=== PATIENT | female | born 1970 | race American Indian/Alaskan Native ===

== ENCOUNTER 2021-02-26 18:24 | Emergency (ER) | payer SELFPAY ==
--- NOTE | 2021-02-26 18:55 | Event Note ---
ED Screening Note ED Screening Note: I briefly spoke with patient. SHe is exhibiting poor insight and disorganized thought pattern. WIll need MH evaluation. This initial assessment/diagnostic orders/clinical plan/treatment(s) is/are subject to change based on patients health status, clinical progression and re- assessment by fellow clinical providers in the ED. Further treatment and workup at subsequent clinical providers discretion. Patient/guardian urged not to elope from the ED as their condition may be serious if not clinically assessed and managed. Initial orders include:
[2021-02-26 19:30] LABS: Basophils # (Auto) 0.1 K/mm3 (0.0-0.1); Basophils % (Auto) 1.3 % (0.0-1.8); Eosinophils % (Auto) 0.7 % (0.0-4.3); Hematocrit 31.6 % (30.3-42.9); Hemoglobin 9.8 gm/dl (10.1-14.3); Lymphocytes # (Auto) 1.3 K/mm3 (1.2-5.4); Lymphocytes % (Auto) 26.9 % (13.4-35.0); Mean Corpuscular HGB Conc 31 % (30-34); Mean Corpuscular Volume 79 fl (79-97); Monocytes # (Auto) 0.5 K/mm3 (0.0-0.8); Monocytes % (Auto) 11.2 % (0.0-7.3); Platelet Count 157 K/mm3 (140-440); Red Blood Count 4.02 M/mm3 (3.65-5.03)
[2021-02-26 19:39] LABS: Red Cell Distribution Width 22.1 % (13.2-15.2)
[2021-02-26 19:46] LABS: BUN/Creatinine Ratio 12; Blood Urea Nitrogen 6 mg/dL (7-17); Hemolysis Index 17
[2021-02-26] MEDS ORDERED: diphenhydrAMINE 50 MG/ML VIAL IM NR (19:52)
[2021-02-26] MEDS ORDERED: HALOPERIDOL LACTATE 5 MG/1 ML INJ IM PRN (19:52)
[2021-02-26] MEDS ORDERED: LORazepam 2 MG/ML VIAL IM PRN (19:52)
--- NOTE | 2021-02-26 19:54 | Emergency Department Report ---
ED General Adult HPI - General Chief complaint: Psych Stated complaint: Patient is psychotic and will not speak to me PUI?: No Time Seen by Provider: 02/26/21 19:50 Source: patient, RN notes reviewed Mode of arrival: Ambulatory Limitations: Other (Acute psychosis) - History of Present Illness Initial comments: The patient was evaluated in the emergency department for symptoms described in the history of present illness. He/she was evaluated in the context of the global COVID-19 pandemic, which necessitated consideration that the patient might be at risk for infection with the virus that causes COVID-19. Institutional protocols and algorithms that pertain to the evaluation of patients at risk for COVID-19 are in a state of rapid change based on information released by regulatory bodies including the CDC and federal and state organizations. These policies and algorithms were followed during the patient's care in the emergency department. Please note that these policies, procedures and recommendations changed on a rapid basis. This is a 58-year-old female. She is not known to myself previously. The details of her pertinent past medical history are not known to myself. It is not known to myself how she came to this emergency room. On my evaluation, the patient is psychotic. She is agitated, aggressive, and spitting on staff. The patient does not respond to verbal de-escalation techniques or show of force. She is placed on a 1013, and medicated with haloperidol, Ativan, and Benadryl. The patient is not accompanied by friends or family at this time for collateral information or additional history. The patient is acutely agitated and psychotic, not able to describe the qualitative nature of symptoms, exacerbating factors, relieving factors or aggravating factors. -: unknown - Related Data Allergies Allergy/AdvReac Type Severity Reaction Status Date / Time No Known Allergies Allergy Verified 02/26/21 22:25 ED Review of Systems ROS: Stated complaint: EVALUATION Other details as noted in HPI Comment: Unobtainable due to pts medical conditions ED Physical Exam - General Limitations: Other (Agitation and psychosis) General appearance: other (Psychotic) - Head Head exam: Present: atraumatic, normocephalic - Eye Eye exam: Present: normal appearance, EOMI - ENT ENT exam: Present: normal exam, normal orophraynx, mucous membranes moist, norm al external ear exam - Neck Neck exam: Present: normal inspection, full ROM. Absent: tenderness, meningismus - Respiratory Respiratory exam: Present: normal lung sounds bilaterally. Absent: respiratory distress, wheezes, rales, rhonchi, stridor, decreased breath sounds - Cardiovascular Cardiovascular Exam: Present: regular rate, normal rhythm, normal heart sounds. Absent: bradycardia, tachycardia, irregular rhythm, systolic murmur, diastolic murmur, rubs, gallop - GI/Abdominal GI/Abdominal exam: Present: soft. Absent: distended, tenderness, guarding, rebound, rigid, pulsatile mass - Extremities Exam Extremities exam: Present: normal inspection, full ROM, other (2+ pulses noted in the bilateral upper and lower extremities. There is no palpable cord. negative Homans sign. Muscular compartments are soft. The pelvis is stable.). Absent: pedal edema, calf tenderness - Back Exam Back exam: Present: normal inspection. Absent: tenderness, CVA tenderness (R), CVA tenderness (L), paraspinal tenderness, vertebral tenderness - Neurological Exam Neurological exam: Present: other (The patient is awake. EOMI. Tongue midline. 5 out of 5 strength in 4 extremities.) - Psychiatric Psychiatric exam: Present: agitated, anxious, other (Yelling and cursing at staff) - Skin Skin exam: Present: warm, dry, intact, normal color. Absent: rash ED Course Vital Signs 02/26/21 18:51 Temperature 98.8 F Pulse Rate 74 Respiratory 16 Rate Blood Pressure 145/108 [Right] O2 Sat by Pulse 97 Oximetry - Reevaluation(s) Reevaluation #1: 02/27/21 00:40 Differential diagnosis, including but not limited to: Psychosis, medical clearance for psychiatric placement, electrolyte derangement, thyroid derangement Assessment and plan: 51-year-old female who is grossly psychotic, requires 1013. Her external physical examination is unremarkable. Her diagnostic laboratory studies, including TSH and electrolytes are unremarkable. Urinalysis and urine drug screen are pending. CT scan of the brain negative for acute findings, serum toxicology study unremarkable. Covid swab ordered in anticipation of psychiatric placement. The emergency department will follow along as the patient provides her urine sample and urine drug screen. However, at this point time, this patient does not appear to have an immediate medical contraindication to psychiatric admission, evaluation, consultation and placement. Psychiatric consultation is pending at this time. ED Medical Decision Making - Lab Data Result diagrams: 02/26/21 19:07 02/26/21 19:07 Vital Signs 02/26/21 18:51 Temperature 98.8 F Pulse Rate 74 Respiratory 16 Rate Blood Pressure 145/108 [Right] O2 Sat by Pulse 97 Oximetry Lab Results 02/26/21 02/26/21 02/26/21 Range/Units 19:07 19:07 19:07 WBC 4.7 (4.5-11.0) K/mm3 RBC 4.02 (3.65-5.03) M/mm3 Hgb 9.8 L (10.1-14.3) gm/dl Hct 31.6 (30.3-42.9) % MCV 79 (79-97) fl MCH 25 L (28-32) pg MCHC 31 (30-34) % RDW 22.1 H (13.2-15.2) % Plt Count 157 (140-440) K/mm3 Lymph % (Auto) 26.9 (13.4-35.0) % [place] % (Auto) 11.2 H (0.0-7.3) % Eos % (Auto) 0.7 (0.0-4.3) % Baso % (Auto) 1.3 (0.0-1.8) % Lymph # (Auto) 1.3 (1.2-5.4) K/mm3 [place] # (Auto) 0.5 (0.0-0.8) K/mm3 Eos # (Auto) 0.0 (0.0-0.4) K/mm3 Baso # (Auto) 0.1 (0.0-0.1) K/mm3 Seg Neutrophils % 59.9 (40.0-70.0) % Seg Neutrophils # 2.8 (1.8-7.7) K/mm3 Sodium 137 (137-145) mmol/L Potassium 3.7 (3.6-5.0) mmol/L Chloride 103.3 (98-107) mmol/L Carbon Dioxide 24 (22-30) mmol/L Anion Gap 13 mmol/L BUN 6 L (7-17) mg/dL Creatinine 0.5 L (0.6-1.2) mg/dL Estimated GFR > 60 ml/min BUN/Creatinine Ratio 12 % Glucose 86 (65-100) mg/dL Calcium 9.0 (8.4-10.2) mg/dL Magnesium (1.7-2.3) mg/dL Total Creatine Kinase (30-135) units/L TSH (0.270-4.200) mlU/mL HCG, Qual (Negative) HCG, Quant (0-4) mIU/mL Salicylates < 0.3 L (2.8-20.0) mg/dL Acetaminophen (10.0-30.0) ug/mL Valproic Acid (50-100) ug/mL [place] (0.0-1.2) mmol/L Plasma/Serum Alcohol (0-0.07) % 02/26/21 02/26/21 02/26/21 Range/Units 19:07 19:07 19:07 WBC (4.5-11.0) K/mm3 RBC (3.65-5.03) M/mm3 Hgb (10.1-14.3) gm/dl Hct (30.3-42.9) % MCV (79-97) fl MCH (28-32) pg MCHC (30-34) % RDW (13.2-15.2) % Plt Count (140-440) K/mm3 Lymph % (Auto) (13.4-35.0) % [place] % (Auto) (0.0-7.3) % Eos % (Auto) (0.0-4.3) % Baso % (Auto) (0.0-1.8) % Lymph # (Auto) (1.2-5.4) K/mm3 [place] # (Auto) (0.0-0.8) K/mm3 Eos # (Auto) (0.0-0.4) K/mm3 Baso # (Auto) (0.0-0.1) K/mm3 Seg Neutrophils % (40.0-70.0) % Seg Neutrophils # (1.8-7.7) K/mm3 Sodium (137-145) mmol/L Potassium (3.6-5.0) mmol/L Chloride (98-107) mmol/L Carbon Dioxide (22-30) mmol/L Anion Gap mmol/L BUN (7-17) mg/dL Creatinine (0.6-1.2) mg/dL Estimated GFR ml/min BUN/Creatinine Ratio % Glucose (65-100) mg/dL Calcium (8.4-10.2) mg/dL Magnesium (1.7-2.3) mg/dL Total Creatine Kinase (30-135) units/L TSH (0.270-4.200) mlU/mL HCG, Qual Negative (Negative) HCG, Quant (0-4) mIU/mL Salicylates (2.8-20.0) mg/dL Acetaminophen 5.0 L (10.0-30.0) ug/mL Valproic Acid (50-100) ug/mL [place] (0.0-1.2) mmol/L Plasma/Serum Alcohol < 0.01 (0-0.07) % 02/26/21 02/26/21 02/26/21 Range/Units 19:07 19:07 19:07 WBC (4.5-11.0) K/mm3 RBC (3.65-5.03) M/mm3 Hgb (10.1-14.3) gm/dl Hct (30.3-42.9) % MCV (79-97) fl MCH (28-32) pg MCHC (30-34) % RDW (13.2-15.2) % Plt Count (140-440) K/mm3 Lymph % (Auto) (13.4-35.0) % [place] % (Auto) (0.0-7.3) % Eos % (Auto) (0.0-4.3) % Baso % (Auto) (0.0-1.8) % Lymph # (Auto) (1.2-5.4) K/mm3 [place] # (Auto) (0.0-0.8) K/mm3 Eos # (Auto) (0.0-0.4) K/mm3 Baso # (Auto) (0.0-0.1) K/mm3 Seg Neutrophils % (40.0-70.0) % Seg Neutrophils # (1.8-7.7) K/mm3 Sodium (137-145) mmol/L Potassium (3.6-5.0) mmol/L Chloride (98-107) mmol/L Carbon Dioxide (22-30) mmol/L Anion Gap mmol/L BUN (7-17) mg/dL Creatinine (0.6-1.2) mg/dL Estimated GFR ml/min BUN/Creatinine Ratio % Glucose (65-100) mg/dL Calcium (8.4-10.2) mg/dL Magnesium 2.20 (1.7-2.3) mg/dL Total Creatine Kinase 110 (30-135) units/L TSH 2.050 (0.270-4.200) mlU/mL HCG, Qual (Negative) HCG, Quant 0.615 (0-4) mIU/mL Salicylates (2.8-20.0) mg/dL Acetaminophen (10.0-30.0) ug/mL Valproic Acid (50-100) ug/mL [place] (0.0-1.2) mmol/L Plasma/Serum Alcohol (0-0.07) % 02/26/21 Range/Units 19:07 WBC (4.5-11.0) K/mm3 RBC (3.65-5.03) M/mm3 Hgb (10.1-14.3) gm/dl Hct (30.3-42.9) % MCV (79-97) fl MCH (28-32) pg MCHC (30-34) % RDW (13.2-15.2) % Plt Count (140-440) K/mm3 Lymph % (Auto) (13.4-35.0) % [place] % (Auto) (0.0-7.3) % Eos % (Auto) (0.0-4.3) % Baso % (Auto) (0.0-1.8) % Lymph # (Auto) (1.2-5.4) K/mm3 [place] # (Auto) (0.0-0.8) K/mm3 Eos # (Auto) (0.0-0.4) K/mm3 Baso # (Auto) (0.0-0.1) K/mm3 Seg Neutrophils % (40.0-70.0) % Seg Neutrophils # (1.8-7.7) K/mm3 Sodium (137-145) mmol/L Potassium (3.6-5.0) mmol/L Chloride (98-107) mmol/L Carbon Dioxide (22-30) mmol/L Anion Gap mmol/L BUN (7-17) mg/dL Creatinine (0.6-1.2) mg/dL Estimated GFR ml/min BUN/Creatinine Ratio % Glucose (65-100) mg/dL Calcium (8.4-10.2) mg/dL Magnesium (1.7-2.3) mg/dL Total Creatine Kinase (30-135) units/L TSH (0.270-4.200) mlU/mL HCG, Qual (Negative) HCG, Quant (0-4) mIU/mL Salicylates (2.8-20.0) mg/dL Acetaminophen (10.0-30.0) ug/mL Valproic Acid < 2.8 L (50-100) ug/mL [place] 0.1 (0.0-1.2) mmol/L Plasma/Serum Alcohol (0-0.07) % - Radiology Data Radiology results: pending, report reviewed, image reviewed CT HEAD WITHOUT CONTRAST INDICATION / CLINICAL INFORMATION: psychosis med clearance psych. TECHNIQUE: All CT scans at this location are performed using CT dose reduction for ALARA by means of automated exposure control. COMPARISON: None available. FINDINGS: No acute intracranial hemorrhage. Ventricles are normal in size without midline shift or mass effect. No extra-axial fluid collection is seen. Visualized sinuses are clear. ADDITIONAL FINDINGS: None. IMPRESSION: 1. No acute intracranial abnormality. Signer Name: Wil Rodriguez MD Signed: 02/26/2021 10:58 PM Workstation Name: [email or web address] Critical care attestation.: If time is entered above; I have spent that time in minutes in the direct care of this critically ill patient, excluding procedure time. ED Disposition Clinical Impression: Psychosis, Medical clearance for psychiatric admission Disposition: [address] [place] [address] Is pt being admited?: No Does the pt Need Aspirin: No Condition: Good
--- NOTE | 2021-02-27 00:02 | Cat Scan Report ---
CT HEAD WITHOUT CONTRAST INDICATION / CLINICAL INFORMATION: psychosis med clearance psych. TECHNIQUE: All CT scans at this location are performed using CT dose reduction for ALARA by means of automated e xposure control. COMPARISON: None available. FINDINGS: No acute intracranial hemorrhage. Ventricles are normal in size without midline shift or mass effect. No extra-axial fluid collection is seen. Visualized sinuses are clear. ADDITIONAL FINDINGS: None. IMPRESSION: 1. No acute intracranial abnormality. Signer Name: Wil Rodriguez MD Signed: 02/26/2021 11:58 PM Workstation Name: [id number]
--- NOTE | 2021-02-27 10:53 | Consultation ---
History of Present Illness - Reason for Consult Consult date: 02/27/21 Reason for consult: agitation - History of Present Psychiatric Illness Per ER Note: This is a 58-year-old female. She is not known to myself previously. The details of her pertinent past medical history are not known to myself. It is not known to myself how she came to this emergency room. On my evaluation, the patient is psychotic. She is agitated, aggressive, and spitting on staff. The patient does not respond to verbal de-escalation techniques or show of force. She is placed on a 1013, and medicated with haloperidol, Ativan, and Benadryl. The patient is not accompanied by friends or family at this time for collateral information or additional history. The patient is acutely agitated and psychotic, not able to describe the qualitative nature of symptoms, exacerbating factors, relieving factors or aggravating factors. Sid Costello was seen today, it was difficult due to her excessive drowsiness. The patient had to be arouses several times to engage her in the evaluation. She is a poor historian and unable to give a lot of information. Her thoughts are disorganized. When asking the patient what brought her in, she says "I don't know." She then says "I gotta get there." She says "no I'm not" when asked about her psych history. The patient does not further answer any questions. PAST PSYCHIATRIC HISTORY: Unable to obtain PAST MEDICAL HISTORY: None documented Family Psychiatric History unable to obtain SOCIAL HISTORY Unable to obtain REVIEW OF SYSTEMS Unable to obtain MSE Unable to obtain Diagnoses: Acute Psychosis Plan 1013 Trazodone 50mg po BID Olanzapine 5mg po daily Agree with prn haldol and lorazepam Sitter: Defer to primary Medical: Per primary Disposition: Recommend acute psychiatric inpatient treatment Will follow. Please call if you have any questions or concerns. Thank you for this consult. Case staffed with Dr. Nelson Medications and Allergies Allergies Allergy/AdvReac Type Severity Reaction Status Date / Time No Known Allergies Allergy Verified 02/26/21 22:25 Active Meds: Active Medications Haloperidol Lactate (Haloperidol Lactate 5 Mg/1 Ml Inj) 5 mg IM Q6HR PRN PRN Reason: Agitation Last Admin: 02/26/21 22:54 Dose: 5 mg Documented by: Lorazepam (Lorazepam 2 Mg/Ml Vial) 2 mg IM Q4HR PRN PRN Reason: Agitation Last Admin: 02/26/21 22:54 Dose: 2 mg Documented by: Mental Status Exam - Vital signs Last Vital Signs Temp 98.6 F 02/27/21 08:13 Pulse 72 02/27/21 08:13 Resp 18 02/27/21 08:13 BP 110/70 02/27/21 08:13 Pulse Ox 98 02/27/21 09:40 Results Result Diagrams: 02/26/21 19:07 02/26/21 19:07 Abnormal lab results 02/26/21 02/26/21 02/26/21 Range/Units 19:07 19:07 19:07 Hgb 9.8 L (10.1-14.3) gm/dl MCH 25 L (28-32) pg RDW 22.1 H (13.2-15.2) % [place] % (Auto) 11.2 H (0.0-7.3) % BUN 6 L (7-17) mg/dL Creatinine 0.5 L (0.6-1.2) mg/dL Salicylates < 0.3 L (2.8-20.0) mg/dL Acetaminophen (10.0-30.0) ug/mL Valproic Acid (50-100) ug/mL 02/26/21 02/26/21 Range/Units 19:07 19:07 Hgb (10.1-14.3) gm/dl MCH (28-32) pg RDW (13.2-15.2) % [place] % (Auto) (0.0-7.3) % BUN (7-17) mg/dL Creatinine (0.6-1.2) mg/dL Salicylates (2.8-20.0) mg/dL Acetaminophen 5.0 L (10.0-30.0) ug/mL Valproic Acid < 2.8 L (50-100) ug/mL All other labs normal.
--- NOTE | 2021-02-27 12:18 | Event Note ---
Date: 02/27/21 S: Patient reportedly agitated last night spitting on staff. No other events reported. Patient has prn's ordered O: Vital Signs - 24 hr 02/26/21 02/26/21 02/27/21 18:51 20:44 00:44 Temperature 98.8 F 98.4 F 97.6 F Pulse Rate 74 74 74 Respiratory 16 16 16 Rate Blood Pressure 145/108 133/88 178/73 [Right] O2 Sat by Pulse 97 98 98 Oximetry 02/27/21 02/27/21 08:13 09:40 Temperature 98.6 F Pulse Rate 72 Respiratory 18 Rate Blood Pressure 110/70 [Right] O2 Sat by Pulse 98 98 Oximetry A: Acute psychosis P: 1013/awaiting inpatient psych
[2021-02-27] MEDS ORDERED: traZODone 50 MG TAB PO SCH (22:00)
--- NOTE | 2021-02-28 10:08 | Progress Note ---
Subjective - Reason for Consult Consult date: 02/28/21 Reason for consult: agitation - Chief Complaint Chief complaint: The patient was seen today. She is awake and alert. She is irritable, responding to internal stimuli and paranoid. The patient is oriented x 1. She thinks she's a a doctors appointment. She also did not know the month or the . President. The patient tells me she's trying to move into her own place. She then says "I came here to see a therapist and have not seen one yet." I informed the patient that she was in the ER and no therapist are here. She becomes angry and says "where are my things. I need them in order to talk to you." She then looks away and says beneath her breath, "she just said that," as if talking to someone else. She says people stole her things are are looking through them. She then demands to see her therapist and her medical doctor. The patient then turns her head and says, "stop looking at me. There you go with this again." She denies SI/HI. REVIEW OF SYSTEMS Constitutional: Negative for weight loss ENT: Negative for stridor Respiratory: Negative for cough or hemoptysis All other systems reviewed and are negative MENTAL STATUS EXAMINATION General Appearance and Behavior: Age appropriate, good hygiene, wearing appropriate clothes, irritable Cooperation: cooperative, guarded Psychomotor Behavior: Psychomotor normal Mood: irritable Affect and affective range: restricted Thought Process: illogical, disorganized Thought Content: hallucinations, responding to internal stimuli Speech: Normal rate, volume and rhythm Suicidal Ideation: Denies Homicidal Ideation: Denies HI Hallucinations: Auditory Delusions: Paranoid Impulse Control: Impaired Insight and Judgment: Limited insight and judgment Memory: Limited Attention: Distracted Orientation: disorganized Diagnoses: Acute Psychosis Plan 1013 Trazodone 50mg po BID Increase Olanzapine 7.5mg po daily Start Depakote DR 125mg po BID Agree with prn haldol and lorazepam Sitter: Defer to primary Medical: Per primary Disposition: Recommend acute psychiatric inpatient treatment Will follow. Please call if you have any questions or concerns. Thank you for this consult. Case staffed with Dr. Nelson Mental Status Exam - Vital signs Last Vital Signs Temp 98.6 F 02/27/21 19:49 Pulse 60 02/27/21 19:49 Resp 18 02/27/21 19:49 BP 160/61 02/27/21 19:49 Pulse Ox 99 02/27/21 19:49
--- NOTE | 2021-02-28 10:35 | Event Note ---
Date: 02/28/21 S: No events reported overnight O: Vital Signs - 24 hr 02/27/21 02/28/21 19:49 10:44 Temperature 98.6 F 97.9 F Pulse Rate 60 96 H Respiratory 18 18 Rate Blood Pressure 160/61 120/77 [Right] O2 Sat by Pulse 99 100 Oximetry A: Acute psychosis P: 1013/awaiting inpatient psych
[2021-02-28] MEDS ORDERED: DIVALPROEX DR 125 MG TAB PO SCH (11:00)
[2021-02-28 20:07] VITALS: BP 150/50
== END 2021-02-28 21:24 ==
LOC: ED 18:24
DX: F23 Brief psychotic disorder (principal); Z20.822 Contact with and (suspected) exposure to COVID-19; Z13.30 Encounter for screening examination for mental health and behavioral disorders, unspecified; Z79.899 Other long term (current) drug therapy
CPT/HCPCS: 36415; 70450; 80048; 80164; 80178; 82550; 83735; 84443; 84702; 84703; 85025; 96372; 99285; J1200; J1630; J2060; U0003; 80320; G0480

== ENCOUNTER 2021-06-10 06:08 | Emergency (ER) | payer SELFPAY ==
--- NOTE | 2021-06-10 10:08 | Emergency Department Report ---
ED Extremity Problem HPI - General Chief complaint: Extremity Injury, Lower Stated complaint: PSYCH EPISODE Time Seen by Provider: 06/10/21 09:25 Source: patient Mode of arrival: Ambulatory Limitations: No Limitations - History of Present Illness Initial comments: 51-year-old female who is currently homeless presents to the ER today with complaints of bilateral foot pain. She states that she been having this pain chronically for about 7 months. States that she feels like the pain got worse 7 weeks ago. She states that the pain is mainly around the sides of her feet. She has been trying eogu-mvh-[id number] medications with some relief, but came to the ER to see if she can get prescribed medication for her feet. She does admit that she does lots of walking but no specific injury. She reports no swelling, no bruising, numbness or weakness. She reports no chest pain, fever, chills or any additional symptoms at this time MD Complaint: other (Feet pain) -: month(s) (7mths) - Related Data Previous Rx's Medication Instructions Recorded Last Taken Type Clotrimazole 1% [Lotrimin] 1 applic TP BID #30 gm 06/10/21 Unknown Rx Naproxen 500 mg PO BID #20 tablet 06/10/21 Unknown Rx Allergies Allergy/AdvReac Type Severity Reaction Status Date / Time No Known Allergies Allergy Verified 06/10/21 06:24 ED Review of Systems ROS: Stated complaint: PSYCH EPISODE Other details as noted in HPI Comment: All other systems reviewed and negative Respiratory: denies: cough, shortness of breath, wheezing Cardiovascular: denies: chest pain, palpitations Musculoskeletal: arthralgia. denies: joint swelling Skin: denies: rash, lesions, change in color, change in hair/nails, pruritus Neurological: denies: headache, weakness, numbness, paresthesias, confusion, abnormal gait, vertigo Psychiatric: denies: anxiety, depression, auditory hallucinations, visual hallucinations, homicidal thoughts, suicidal thoughts Hematological/Lymphatic: denies: easy bleeding, easy bruising ED Past Medical Hx - Past Medical History Previous Medical History?: Yes Hx Psychiatric Treatment: Yes (Paranoid schizophrenia) - Social History Smoking Status: Unknown if ever smoked - Medications Home Medications: Home Medications Medication Instructions Recorded Confirmed Last Taken Type Clotrimazole 1% [Lotrimin] 1 applic TP BID #30 gm 06/10/21 Unknown Rx Naproxen 500 mg PO BID #20 tablet 06/10/21 Unknown Rx ED Physical Exam - General Limitations: No Limitations General appearance: alert, in no apparent distress - Head Head exam: Present: atraumatic, normocephalic, normal inspection - Eye Eye exam: Present: normal appearance, PERRL, EOMI Pupils: Present: normal accommodation - Neck Neck exam: Present: normal inspection, full ROM - Respiratory Respiratory exam: Present: normal lung sounds bilaterally. Absent: respiratory distress, wheezes, rales, rhonchi - Cardiovascular Cardiovascular Exam: Present: regular rate, normal rhythm, normal heart sounds - Extremities Exam Extremities exam: Present: other (No apparent tenderness to palpation to the f eet bilaterally. Patient does have few areas of calluses about her heel, and some hyperpigmented thickened dry rash areas along the sides of her feet, mainly about the heel. Dorsalis pedis pulse normal. No swelling. No bruising. No deformity.) - Neurological Exam Neurological exam: Present: alert, oriented X3, CN II-XII intact, normal gait - Psychiatric Psychiatric exam: Present: normal affect, normal mood - Skin Skin exam: Present: intact ED Course Vital Signs 06/10/21 06/10/21 06:24 10:51 Temperature 97.9 F 98.3 F Pulse Rate 67 80 Respiratory 18 16 Rate Blood Pressure 136/75 126/78 [Left] O2 Sat by Pulse 100 100 Oximetry ED Medical Decision Making - Medical Decision Making 51-year-old female who is currently homeless presents to the ER today with complaints of bilateral foot pain. She states that she been having this pain chronically for about 7 months. States that she feels like the pain got worse 7 weeks ago. She states that the pain is mainly around the sides of her feet. She has been trying owxj-acd-bkumsge medications with some relief, but came to the ER to see if she can get prescribed medication for her feet. She does admit that she does lots of walking but no specific injury. She reports no swelling, no bruising, numbness or weakness. She reports no chest pain, fever, chills or any additional symptoms at this time. Examination of the patient's feet does not suggest cellulitis, septic joint, compartment syndrome, DVT, or any emergent conditions warranting testing at this time. She has good dorsalis pedis pulses to both feet. She has no swelling. She moves her feet and toes well without any difficulty. Sensation across her feet bilateral and equal. Cap refill is normal. Her pain has been chronic, she does have a few areas of calluses on her heels that does not appear to be infected as well as areas concerning for possible tinea pedis. Discussed treatment plan with patient. She will be given referral to local manager mba for follow-up. Patient expressed understanding. Patient stable at time of discharge. Critical care attestation.: If time is entered above; I have spent that time in minutes in the direct care of this critically ill patient, excluding procedure time. ED Disposition Clinical Impression: Chronic foot pain, Callus of foot, Tinea pedis Disposition: HOME / SELF CARE / HOMELESS Is pt being admited?: No Does the pt Need Aspirin: No Condition: Stable Instructions: Athlete's Foot, Nbur-oz-Djpu, Corns and Calluses, Foot Pain Additional Instructions: Naproxen as prescribed to help with pain. Use the Lotrimin cream as prescribed. Keep your foot clean, with soap and water, keep it dry as much as possible and try and stay off of it as much as possible. I do recommend following up with the manager mba listed on your discharge instructions for proper foot care. Follow-up with your PCP or local clinic. Return to the ER if symptoms worsens in any way. Prescriptions: Clotrimazole 1% [Lotrimin] 1 applic TP BID #30 gm Naproxen 500 mg PO BID #20 tablet Referrals: [facility] [Provider Group] - 3-5 Days AYUSH PETER DPM [Staff Physician] - 3-5 Days Time of Disposition: 10:23
[2021-06-10 10:53] VITALS: BP 126/78
== END 2021-06-10 10:53 | disposition home or self-care (01) ==
LOC: ED 06:08
DX: M25.775 Osteophyte, left foot (principal); M25.774 Osteophyte, right foot; B35.3 Tinea pedis; G89.29 Other chronic pain; F20.0 Paranoid schizophrenia
CPT/HCPCS: 99283

== ENCOUNTER 2021-06-11 14:18 | Emergency (ER) | payer MEDICAID ==
[2021-06-11 18:05] VITALS: BP 131/74
--- NOTE | 2021-06-11 18:08 | Emergency Department Report ---
ED General Adult HPI - General Chief complaint: Medical Clearance Stated complaint: i need an IV Time Seen by Provider: 06/11/21 17:54 Source: patient, RN notes reviewed, old records reviewed Mode of arrival: Ambulatory Limitations: No Limitations - History of Present Illness Initial comments: The patient was evaluated in the emergency department for symptoms described in the history of present illness. He/she was evaluated in the context of the global COVID-19 pandemic, which necessitated consideration that the patient might be at risk for infection with the virus that causes COVID-19. Institutional protocols and algorithms that pertain to the evaluation of patients at risk for COVID-19 are in a state of rapid change based on information released by regulatory bodies including the CDC and federal and state organizations. These policies and algorithms were followed during the patient's care in the emergency department. Please note that these policies, procedures and recommendations changed on a rapid basis. This patient is a 51-year-old female who is homeless. She is a frequent utilizer and abuser of this emergency room. She presented yesterday with a complaint of nonspecific foot discomfort, present for months. She was seen and treated appropriately by my physician hair assistant keke. Please see her documentation yesterday for the details of her care. The patient presents today via police department with a request for IV. She states that she is thirsty. She denies physical pain. She is not homicidal suicidal. She reports that her mouth feels dry. She is agreeable to ice water. She was given prescriptions yesterday. She is asking for these prescriptions to be physically handed to her. She reports that she has not gone to a local pharmacy. She denies homicidality, suicidality, hallucinations and overdose. Severity scale (0 -10): 0 - Related Data Previous Rx's Medication Instructions Recorded Last Taken Type Clotrimazole 1% [Lotrimin] 1 applic TP BID #30 gm 06/10/21 Unknown Rx Naproxen 500 mg PO BID #20 tablet 06/10/21 Unknown Rx Allergies Allergy/AdvReac Type Severity Reaction Status Date / Time No Known Allergies Allergy Verified 06/11/21 16:37 ED Review of Systems ROS: Stated complaint: MED CLEARENCE Other details as noted in HPI ED Past Medical Hx - Past Medical History Hx Psychiatric Treatment: Yes (Paranoid schizophrenia) - Social History Smoking Status: Unknown if ever smoked - Medications Home Medications: Home Medications Medication Instructions Recorded Confirmed Last Taken Type Clotrimazole 1% [Lotrimin] 1 applic TP BID #30 gm 06/10/21 Unknown Rx Naproxen 500 mg PO BID #20 tablet 06/10/21 Unknown Rx ED Physical Exam - General Limitations: No Limitations General appearance: alert, in no apparent distress - Head Head exam: Present: atraumatic, normocephalic - Eye Eye exam: Present: normal appearance, EOMI. Absent: nystagmus - ENT ENT exam: Present: normal exam, normal orophraynx, mucous membranes moist, normal external ear exam - Neck Neck exam: Present: normal inspection, full ROM. Absent: tenderness, meningismus - Respiratory Respiratory exam: Present: normal lung sounds bilaterally. Absent: respiratory distress, wheezes, rales, rhonchi, stridor, decreased breath sounds - Cardiovascular Cardiovascular Exam: Present: regular rate, normal rhythm, normal heart sounds. Absent: bradycardia, tachycardia, irregular rhythm, systolic murmur, diastolic murmur, rubs, gallop - GI/Abdominal GI/Abdominal exam: Present: soft. Absent: distended, tenderness, guarding, rebound, rigid, pulsatile mass - Extremities Exam Extremities exam: Present: normal inspection, full ROM, other (2+ pulses noted in the bilateral upper and lower extremities. There is no palpable cord. negative Homans sign. Muscular compartments are soft. The pelvis is stable.). Absent: pedal edema, calf tenderness - Back Exam Back exam: Present: normal inspection, full ROM. Absent: tenderness, CVA tenderness (R), CVA tenderness (L), paraspinal tenderness, vertebral tenderness - Neurological Exam Neurological exam: Present: alert, oriented X3, normal gait, other (No facial droop. Tongue midline. Extraocular movements intact bilaterally. Facial sensation intact to light touch in V1, V2, V3 distribution bilaterally. 5 and a 5 strength in 4 extremities. Sensation intact to light touch in 4 extremities.). Absent: motor sensory deficit - Psychiatric Psychiatric exam: Absent: homicidal ideation, suicidal ideation - Skin Skin exam: Present: warm, dry, intact, normal color. Absent: rash ED Course Vital Signs 06/11/21 06/11/21 06/11/21 16:42 18:00 18:04 Temperature 98.3 F 98.1 F Pulse Rate 69 73 Respiratory 20 16 Rate Blood Pressure 152/80 Blood Pressure 131/74 [Left] O2 Sat by Pulse 100 99 100 Oximetry ED Medical Decision Making - Lab Data Vital Signs 06/11/21 06/11/21 06/11/21 16:42 18:00 18:04 Temperature 98.3 F 98.1 F Pulse Rate 69 73 Respiratory 20 16 Rate Blood Pressure 152/80 Blood Pressure 131/74 [Left] O2 Sat by Pulse 100 99 100 Oximetry - Medical Decision Making Differential diagnosis, including but not limited to: Encounter for medical screening examination, encounter for behavioral health screening examination Assessment and plan: 51-year-old female, who was afebrile, with reassuring vital signs, who is clinically sober, with a GCS of 15, who is not homicidal suicidal, awake, alert, oriented, and exhibits decision-making capacity. The patient does not meet criteria for 1013 hold or involuntary hold or confinement. Her physical examination is benign and unremarkable. She was seen yesterday by my colleague, and had an appropriate evaluation yesterday. The patient does not appear to have an emergent medical condition present at this time. The patient does not appear to have an emergent psychiatric condition at this time. Patient may follow-up with an outpatient provider. She was given resources yesterday for her homelessness Critical care attestation.: If time is entered above; I have spent that time in minutes in the direct care of this critically ill patient, excluding procedure time. ED Disposition Clinical Impression: Encounter for medical screening examination, Encounter for behavioral health screening Disposition: 01 HOME / SELF CARE / HOMELESS Is pt being admited?: No Does the pt Need Aspirin: No Condition: Good Additional Instructions: Please continue outpatient medications. Please follow-up with outpatient resources that were recently provided to the patient. Please follow-up with your primary care doctor within the next month to 6 weeks. Please return to the emergency room right away with new pain, worsened pain, migration of pain, projectile vomiting, change in mental status, confusion, inability tolerate liquid feeds, new, worsened or different symptoms not present on the initial emergency room evaluation Referrals: [facility] [Outside] - 3-5 Days [facility] [Outside] - 3-5 Days
== END 2021-06-11 19:22 | disposition home or self-care (01) ==
LOC: ED 14:18
DX: F20.0 Paranoid schizophrenia (principal); Z13.30 Encounter for screening examination for mental health and behavioral disorders, unspecified
CPT/HCPCS: 99282

== ENCOUNTER 2021-06-24 01:21 | Emergency (ER) | payer SELFPAY ==
[2021-06-24 05:44] LABS: Basophils # (Auto) 0.1 K/mm3 (0.0-0.1); Basophils % (Auto) 0.7 % (0.0-1.8); Lymphocytes # (Auto) 1.5 K/mm3 (1.2-5.4); Lymphocytes % (Auto) 17.8 % (13.4-35.0); Mean Corpuscular HGB Conc 30 % (30-34); Mean Corpuscular Volume 84 fl (79-97); Monocytes # (Auto) 0.5 K/mm3 (0.0-0.8); Monocytes % (Auto) 6.4 % (0.0-7.3); Platelet Count 157 K/mm3 (140-440); Red Blood Count 4.08 M/mm3 (3.65-5.03)
[2021-06-24 06:05] LABS: Blood Urea Nitrogen 10 mg/dL (7-17); Calcium 9.6 mg/dL (8.4-10.2)
[2021-06-24 06:06] LABS: Hemolysis Index 1
[2021-06-24 06:23] LABS: Hematocrit 34.4 % (30.3-42.9); Hemoglobin 10.4 gm/dl (10.1-14.3)
[2021-06-24 06:25] LABS: BUN/Creatinine Ratio 20
--- NOTE | 2021-06-24 11:35 | Consultation ---
History of Present Illness - Reason for Consult Consult date: 06/24/21 Reason for consult: med clearance - History of Present Psychiatric Illness The patient was seen today. She is confused. She is nonsensical. She has poor insight and unable to give any history. She does say she feels pretty good and the ambulance brought her. She says "I'm trying to figure out my home." The patient then says "there are many situations for me to go back home." She says "I'm renting by myself." When asking why she came to the hospital, she says "to look at myself. I feel clear now." Although, she denies hallucinations, she is observed moving her mouth and talking to herself while I'm writing. She denies SI/HI. SOCIAL HISTORY Unable to obtain REVIEW OF SYSTEMS Unable to obtain MENTAL STATUS EXAMINATION Unable to assess Assessment (1) Psychosis Treatment Plan 1013 Olanzapine 5mg po daily Sitter: per primary Medical: per primary Disposition: Recommend acute psychiatric inpatient treatment once the patient is medically worked up and cleared Case staffed with Dr. Nelson Medications and Allergies Allergies Allergy/AdvReac Type Severity Reaction Status Date / Time No Known Allergies Allergy Verified 06/11/21 16:37 Home Medications Medication Instructions Recorded Confirmed Last Taken Type Clotrimazole 1% [Lotrimin] 1 applic TP BID #30 gm 06/10/21 06/11/21 Unknown Rx Naproxen 500 mg PO BID #20 tablet 06/10/21 06/11/21 Unknown Rx Results Result Diagrams: 06/24/21 05:18 06/24/21 05:18 Abnormal lab results 06/24/21 06/24/21 Range/Units 05:18 05:18 MCH 26 L (28-32) pg RDW 22.0 H (13.2-15.2) % Seg Neutrophils % 75.1 H (40.0-70.0) % Creatinine 0.5 L (0.6-1.2) mg/dL All other labs normal.
--- NOTE | 2021-06-24 15:08 | Emergency Department Report ---
ED Psych HPI - General Chief Complaint: Psych Stated Complaint: MEDICAL CLEARENCE Time Seen by Provider: 06/24/21 07:18 Source: EMS Mode of arrival: Stretcher Limitations: Altered Mental Status - History of Present Illness Initial Comments: delusional , halluicnation, going on for some time, no SI or HI but disorganised speech -: week(s) Associated Psychiatric Symptoms: auditory hallucinations, delusions Quality: intermittent Improves With: none - Related Data Previous Rx's Medication Instructions Recorded Last Taken Type Clotrimazole 1% [Lotrimin] 1 applic TP BID #30 gm 06/10/21 Unknown Rx Naproxen 500 mg PO BID #20 tablet 06/10/21 Unknown Rx Allergies Allergy/AdvReac Type Severity Reaction Status Date / Time No Known Allergies Allergy Verified 06/11/21 16:37 ED Review of Systems ROS: Stated complaint: MEDICAL CLEARENCE Other details as noted in HPI Constitutional: denies: chills, fever Eyes: denies: eye pain, eye discharge, vision change ENT: denies: ear pain, throat pain Respiratory: denies: cough, shortness of breath, wheezing Cardiovascular: denies: chest pain, palpitations Endocrine: no symptoms reported Gastrointestinal: denies: abdominal pain, nausea, diarrhea Genitourinary: denies: urgency, dysuria, discharge Musculoskeletal: denies: back pain, joint swelling, arthralgia Skin: denies: rash, lesions Neurological: denies: headache, weakness, paresthesias Psychiatric: denies: anxiety, depression Hematological/Lymphatic: denies: easy bleeding, easy bruising ED Past Medical Hx - Past Medical History Previous Medical History?: No Hx Psychiatric Treatment: Yes (Paranoid schizophrenia) - Surgical History Past Surgical History?: No - Social History Smoking Status: Unknown if ever smoked - Medications Home Medications: Home Medications Medication Instructions Recorded Confirmed Last Taken Type Clotrimazole 1% [Lotrimin] 1 applic TP BID #30 gm 06/10/21 06/11/21 Unknown Rx Naproxen 500 mg PO BID #20 tablet 06/10/21 06/11/21 Unknown Rx ED Physical Exam - General Limitations: No Limitations General appearance: alert, anxious - Head Head exam: Present: atraumatic, normocephalic - Eye Eye exam: Present: normal appearance - ENT ENT exam: Present: mucous membranes moist - Neck Neck exam: Present: normal inspection - Respiratory Respiratory exam: Present: normal lung sounds bilaterally. Absent: respiratory distress - Cardiovascular Cardiovascular Exam: Present: regular rate, normal rhythm. Absent: systolic murmur, diastolic murmur, rubs, gallop - GI/Abdominal GI/Abdominal exam: Present: soft, normal bowel sounds - Extremities Exam Extremities exam: Present: normal inspection - Back Exam Back exam: Present: normal inspection - Neurological Exam Neurological exam: Present: alert - Psychiatric Psychiatric exam: Present: anxious, manic - Expanded Psychiatric Exam Expanded Focused psych exam: Present: delusional, restlessness - Skin Skin exam: Present: warm, dry, intact, normal color. Absent: rash ED Course Vital Signs 06/24/21 12:24 Temperature 97.5 F L Pulse Rate 80 Respiratory 16 Rate Blood Pressure 127/74 [Left] O2 Sat by Pulse 99 Oximetry ED Medical Decision Making - Lab Data Result diagrams: 06/24/21 05:18 06/24/21 05:18 Critical care attestation.: If time is entered above; I have spent that time in minutes in the direct care of this critically ill patient, excluding procedure time. ED Disposition Clinical Impression: Psychosis Disposition: [address] [place] [address] Is pt being admited?: No Does the pt Need Aspirin: No Condition: Stable Referrals: PRIMARY CARE, [Primary Care Provider] - 3-5 Days
[2021-06-24] MEDS ORDERED: ZIPRASIDONE MESYLATE 20 MG VIAL IM ONE (19:27)
--- NOTE | 2021-06-24 19:30 | Event Note ---
Date: 06/24/21 I was called to see the patient because she was escalating. She was combative. Patient was pacing. She could not be reasoned with. She was yelling and screaming. She was shouting profanities. We attempted to redirect her. We attempted to have security present as a show of force and to escort her back to her room. This failed to improve the situation. She was given Geodon 20 mg IM.
[2021-06-25] MEDS ORDERED: ZIPRASIDONE MESYLATE 20 MG VIAL IM ONE (04:20)
--- NOTE | 2021-06-25 11:27 | Progress Note ---
Subjective - Reason for Consult Consult date: 06/25/21 Reason for consult: mental health evaluation - Chief Complaint Chief complaint: The patient was seen this morning. She presents with disorganized thoughts. She reports being discharged from [place] about 3 days ago. Unable to assess SI/HI/AVH. REVIEW OF SYSTEMS Constitutional: Negative for weight loss ENT: Negative for stridor Respiratory: Negative for cough or hemoptysis All other systems reviewed and are negative MENTAL STATUS EXAMINATION General Appearance and Behavior: Age appropriate, good hygiene, wearing appropriate clothes. calm, cooperative Cooperation: Cooperative Psychomotor Behavior: Psychomotor normal Mood: Confused/ disorganized Affect and affective range: congruent with stated mood Thought Process: circumstantial Thought Content: paranoid Speech: normal tone and pace Suicidal Ideation: unable to assess Homicidal Ideation: unable to assess Hallucinations: unable to assess Delusions: paranoid Impulse Control: Limited Insight and Judgment: Limited insight and fair judgment Memory: Limited Attention: distracted Orientation: a/x o 3 Assessment (1) Schizophrenia Treatment Plan 1013 Continue Olanzapine 7.5mg po daily Continue Prozac 10mg po daily Medical: per primary Disposition: Recommend acute psychiatric inpatient treatment Will follow. Thanks Case staffed with Dr. Nelson Mental Status Exam - Vital signs Last Vital Signs Temp 97.5 F L 06/24/21 12:24 Pulse 80 06/24/21 12:24 Resp 16 06/24/21 12:24 BP 127/74 06/24/21 12:24 Pulse Ox 98 06/25/21 11:26
[2021-06-25 12:09] LABS: Bilirubin,Urine NEG (Negative); Blood,Urine NEG (Negative); Color,Urine Yellow (Yellow); Mucus,Urine FEW /HPF; Protein,Urine <15 mg/dL mg/dL (Negative)
[2021-06-25 12:13] LABS: Amphetamine Screen,Urine Negative; Benzodiazepines Screen,Urine Negative; Cannabinoid Screen,Urine Negative; Cocaine Screen,Urine Negative; Methadone Screen,Urine Negative; Opiate Screen,Urine Negative
--- NOTE | 2021-06-25 12:16 | Event Note ---
Date: 06/25/21 51-year-old female here with acute psychosis. She was seen by my colleague and was medically cleared for psychiatric evaluation and placement. Vital signs reviewed and are stable. There were no acute events overnight. Currently awaiting inpatient psychiatric facility placement
[2021-06-26] MEDS ORDERED: WATER FOR INJ Sterile (PF) 10 ML ONE (07:49)
[2021-06-26] MEDS ORDERED: ZIPRASIDONE MESYLATE 20 MG VIAL IM ONE ×2 (07:49→13:34)
--- NOTE | 2021-06-26 11:24 | Progress Note ---
Subjective - Reason for Consult Consult date: 06/26/21 Reason for consult: mental health evaluation - Chief Complaint Chief complaint: The patient was seen this morning. She continues to present with disorganized thoughts. Per nurse, " Room opened with assistance of security, patient screaming obscenities, patient delusional, responding to internal stimuli, medication given, bathroom assistance offered, patient given breakfast tray and juice. Will continue to monitor." REVIEW OF SYSTEMS Constitutional: Negative for weight loss ENT: Negative for stridor Respiratory: Negative for cough or hemoptysis All other systems reviewed and are negative MENTAL STATUS EXAMINATION General Appearance and Behavior: Age appropriate, good hygiene, wearing appropriate clothes. calm, cooperative Cooperation: Cooperative Psychomotor Behavior: Psychomotor normal Mood: Confused/ disorganized Affect and affective range: congruent with stated mood Thought Process: circumstantial Thought Content: paranoid Speech: normal tone and pace Suicidal Ideation: unable to assess Homicidal Ideation: unable to assess Hallucinations: unable to assess Delusions: paranoid Impulse Control: Limited Insight and Judgment: Limited insight and fair judgment Memory: Limited Attention: distracted Orientation: a/x o 3 Assessment (1) Schizophrenia Treatment Plan 1013 Continue Olanzapine 7.5mg po daily Continue Prozac 10mg po daily Medical: per primary Disposition: Recommend acute psychiatric inpatient treatment Will follow. Thanks Case staffed with Dr. Nelson Mental Status Exam - Vital signs Last Vital Signs Temp 97.6 F 06/26/21 08:01 Pulse 86 06/26/21 08:01 Resp 20 06/26/21 08:01 BP 125/75 06/26/21 08:01 Pulse Ox 98 06/26/21 08:01
[2021-06-26] MEDS ORDERED: ZIPRASIDONE MESYLATE 20 MG VIAL IM PRN (13:31)
--- NOTE | 2021-06-26 20:37 | Event Note ---
Date: 06/26/21 51-year-old female here with acute psychosis. She was medically cleared for psychiatric evaluation and placement. Vital signs reviewed and are stable. No acute events overnight. Currently awaiting inpatient psychiatric facility placement.
[2021-06-27 02:57] VITALS: BP 157/79
--- NOTE | 2021-06-27 10:50 | Progress Note ---
Subjective - Reason for Consult Consult date: 06/27/21 Reason for consult: mental health evaluation - Chief Complaint Chief complaint: The patient was seen this morning. She continues to present with some disorganized thoughts. The patient states she feels better today and denies any current suicidal/homicidal ideation. REVIEW OF SYSTEMS Constitutional: Negative for weight loss ENT: Negative for stridor Respiratory: Negative for cough or hemoptysis All other systems reviewed and are negative MENTAL STATUS EXAMINATION General Appearance and Behavior: Age appropriate, good hygiene, wearing approp riate clothes. calm, cooperative Cooperation: Cooperative Psychomotor Behavior: Psychomotor normal Mood: Confused/ disorganized Affect and affective range: congruent with stated mood Thought Process: circumstantial Thought Content: paranoid Speech: normal tone and pace Suicidal Ideation: unable to assess Homicidal Ideation: unable to assess Hallucinations: unable to assess Delusions: paranoid Impulse Control: Limited Insight and Judgment: Limited insight and fair judgment Memory: Limited Attention: distracted Orientation: a/x o 3 Assessment (1) Schizophrenia Treatment Plan 1013 Continue Olanzapine 7.5mg po daily Continue Prozac 10mg po daily Medical: per primary Disposition: Recommend acute psychiatric inpatient treatment Will follow. Thanks Case staffed with Dr. Nelson Mental Status Exam - Vital signs Last Vital Signs Temp 97.6 F 06/27/21 02:23 Pulse 62 06/27/21 02:23 Resp 16 06/27/21 02:23 BP 157/79 06/27/21 02:23 Pulse Ox 100 06/27/21 02:23
--- NOTE | 2021-06-27 18:27 | Event Note ---
Date: 06/27/21 51-year-old female here with psychosis. Medically cleared and accepted at psychiatric facility.
== END 2021-06-27 18:45 ==
LOC: ED 01:21
DX: F29 Unspecified psychosis not due to a substance or known physiological condition (principal); Z20.822 Contact with and (suspected) exposure to COVID-19
CPT/HCPCS: 36415; 80048; 80307; 81001; 85025; 96372; 99284; J3486; U0003; 80320; 99285; G0480

== ENCOUNTER 2022-01-26 08:39 | Emergency (ER) | payer MEDICAID ==
[2022-01-26 10:41] VITALS: BP 114/76
--- NOTE | 2022-01-26 11:57 | Emergency Department Report ---
ED General Adult HPI - General Chief complaint: Psych Stated complaint: MENTAL HEALTH Time Seen by Provider: 01/26/22 11:47 Source: patient Mode of arrival: Ambulatory Limitations: No Limitations - History of Present Illness Initial comments: Ms. Mariee 51-year-old female presents emergency department complaining needing to get in contact with general name of [facility] as she was just discharged from [facility] and did not receive the housing that she was supposed to receive. States that because some issues with having to sleep on the streets and she is trying to resolve by coming to the emergency department and getting someone to help her get in contact with Mr. Sargent so that she can get the appropriate housing. She reports no fever, chills, sweats. No palpitations, no chest pain, no homicidal or suicidal ideation Radiation: non-radiation Severity scale (0 -10): 0 Quality: aching Consistency: constant Improves with: none Worsens with: none Associated Symptoms: denies other symptoms - Related Data Home Medications Medication Instructions Recorded Confirmed Last Taken Unobtainable 06/26/21 06/26/21 Unknown Allergies Allergy/AdvReac Type Severity Reaction Status Date / Time No Known Allergies Allergy Verified 06/11/21 16:37 ED Review of Systems ROS: Stated complaint: MENTAL HEALTH Other details as noted in HPI Comment: All other systems reviewed and negative ED Past Medical Hx - Past Medical History Hx Psychiatric Treatment: Yes (Paranoid schizophrenia) - Social History Smoking Status: Unknown if ever smoked - Medications Home Medications: Home Medications Medication Instructions Recorded Confirmed Last Taken Type Unobtainable 06/26/21 06/26/21 Unknown History ED Physical Exam - General Limitations: No Limitations General appearance: alert, in no apparent distress - Head Head exam: Present: atraumatic, normocephalic - Eye Eye exam: Present: normal appearance, PERRL, EOMI Pupils: Present: normal accommodation - ENT ENT exam: Present: normal exam, normal orophraynx, mucous membranes moist - Neck Neck exam: Present: normal inspection - Respiratory Respiratory exam: Present: normal lung sounds bilaterally. Absent: respiratory distress, rales, rhonchi, chest wall tenderness, accessory muscle use - Cardiovascular Cardiovascular Exam: Present: regular rate, normal rhythm. Absent: systolic murmur, diastolic murmur, rubs, gallop - GI/Abdominal GI/Abdominal exam: Present: soft, normal bowel sounds - Extremities Exam Extremities exam: Present: normal inspection - Back Exam Back exam: Present: normal inspection - Neurological Exam Neurological exam: Present: alert, oriented X3 - Psychiatric Psychiatric exam: Present: normal affect, normal mood - Skin Skin exam: Present: warm, dry, intact, normal color. Absent: rash ED Course Vital Signs 01/26/22 10:34 Temperature 98.1 F Pulse Rate 68 Blood Pressure 114/76 [Right] O2 Sat by Pulse 99 Oximetry Critical care attestation.: If time is entered above; I have spent that time in minutes in the direct care of this critically ill patient, excluding procedure time. ED Disposition Clinical Impression: Social problem, Housing instability Disposition: [facility] Is pt being admited?: No Does the pt Need Aspirin: No Condition: Stable Referrals: [facility] [Outside] - 3-5 Days [facility] [Provider Group] - 3-5 Days
== END 2022-01-26 12:44 | disposition designated cancer center or children's hospital (05) ==
LOC: ED 08:39
DX: Z60.9 Problem related to social environment, unspecified (principal); Z79.811 Long term (current) use of aromatase inhibitors; F20.9 Schizophrenia, unspecified
CPT/HCPCS: 99282